=== PATIENT | male | born 1935 | race Caucasian/White ===

== ENCOUNTER 2021-05-26 09:46 | Day surgery (SDC) | payer OTHER ==
--- NOTE | 2021-05-26 06:23 | EKG ---
Test Date: 2021-05-24 Test Time: 14:03:45 Finish Specialist: ALEXUS MEASUREMENT RESULTS: Intervals: Rate: 64 NV: 144 QRSD: 92 QT: 414 QTc: 427 Dewitt: P: 60 NV: 144 QRS: 8 T: 54 INTERPRETIVE STATEMENTS: Normal sinus rhythm Normal ECG Compared to ECG 04/05/2009 11:34:15 Sinus bradycardia no longer present Electronically Signed On 05-26-21 06:18:20 CDT by Librado Leos
[2021-05-26] MEDS ORDERED: Ringers Lactate 1,000 ML IV ONE (10:23)
[2021-05-26] MEDS ORDERED: LIDOCAINE 1% W/EPI 1:100,000 MDV 20 ML VIAL ONE (10:58)
[2021-05-26] MEDS ORDERED: propofoL 200 MG/20 ML VIAL IV ONE ×2 (11:55→13:08)
[2021-05-26] MEDS ORDERED: LIDOCAINE 2% MPF 5 ML VIAL ONE (12:01)
--- NOTE | 2021-05-26 13:25 | P.BOP ---
Preoperative diagnosis: SCC forehead Postoperative diagnosis: same Primary procedure: WLE with FS, local tissue rearrangement/advancement Tumbler Tender: NONE,NONE Estimated blood loss: 5ml Specimen: forehead for FS Findings: negaive margins, SCC confirmed Anesthesia: MAC Complications: None Implants: none Fluids & blood products: crystalloid 650ml Transferred to: Recovery Room Condition: Good
--- NOTE | 2021-05-26 14:56 | OP ---
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 Postoperative Diagnosis: Squamous cell carcinoma of the scalp. Procedure: Wide local excision with frozen section analysis of malignant skin lesion, total size of defect 2.2 cm with closure via local tissue advancement flap. Indication For Procedure: Mr. 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 The risks, benefits, and alternatives to the procedure including reconstruction options were discussed with the family. Due to the patient's underlying dementia, desire was present for closure of the wound rather than healing by secondary intent to speed healing and reduce the chance the patient self contaminating the wound. Description Of Procedure: The patient was brought to the operating room. He was placed under monitored anesthesia care. The site on the midline frontal scalp was identified and injected with a total of 5 mL of 1% lidocaine with epinephrine into the surrounding area. The area was then cleaned with Betadine and prepped and draped in sterile fashion. The Bovie electrocautery was used to incise through the skin and subcutaneous tissues leaving a gross margin of 5 mm around the outer edge of the gross tumor. The specimen was marked with a suture at the anterior most aspect indicating 12 o'clock and was sent to the pathologist for frozen section analysis. After confirming all margins were negative, closure/reconstruction was undertaken. The defect was measured and was a circular 22 mm diameter defect composed of the skin and subcutaneous tissue of the scalp. Decision was made for a linear closure. Due to its location and desire to place the scar within the relaxed skin tension lines, a 2 cm x 2 cm triangle (base/height) were excised from the right and left aspects of the surgical defect creating a 7.5 x 2.2 cm elliptical defect (area = 14 sq cm). The surrounding tissues were widely undermined to allow advancement of the skin to cover the defect. The deep layers were secured using a 4-0 Vicryl in a buried suture. The skin was then closed with a running 5-0 fast-absorbing gut. The wound was cleaned and dried. There was moderate tension in the very center of the wound. The wound was then dressed with triple antibiotic ointment, a Telfa pad and Tegaderm. The procedure was concluded. The patient was transported to the recovery room by the anesthesia service and will be discharged home later today in the care of his family. ISAURA Voice ID: [id number] Report ID: [id number] SALLY
[2021-05-26 15:02] VITALS: TEMP 96.7
[2021-05-26 15:16] VITALS: BP 125/89; O2SAT 96
== END 2021-05-26 15:15 | disposition home or self-care (01) ==
LOC: OR 09:46
PROVIDERS: ATTEND Otolaryngology
PROC: 0JB10ZZ Excision of Face Subcutaneous Tissue and Fascia, Open Approach (ICD-10-PCS; 2021-05-26)
PROC: 0HX1XZZ Transfer Face Skin, External Approach (ICD-10-PCS; principal; 2021-05-26 11:15)
DX: C44.329 Squamous cell carcinoma of skin of other parts of face (principal); F03.91 Unspecified dementia, unspecified severity, with behavioral disturbance; Z20.822 Contact with and (suspected) exposure to COVID-19
CPT/HCPCS: 93005; 88331; 88332; 88305; 14041; U0003; J2704 ×2; J7120